=== PATIENT | male | born 1960 | race Caucasian/White ===

== ENCOUNTER 2017-01-24 02:14 | Emergency (ER) | payer OTHER ==
[2017-01-24] MEDS ORDERED: CLINDAMYCIN HCL 150 MG CAPSULE PO ONE ×2 (02:34→02:54)
[2017-01-24] MEDS ORDERED: HYDROcodone /APAP 5/325 1 EACH TABLET PO ONE ×2 (02:36→02:53)
--- NOTE | 2017-01-24 02:39 | ED Physician Documentation ---
General Adult - HISTORIAN Historian: patient - HPI Stated Complaint: dental pain Chief Complaint: General Adult Onset: hours Timing: still present Severity: moderate Further Comments: yes (Pt is a 56 yo male with dental pain x 2 days. No fever.) - ROS CONST: no problems EYES/ENT: none CVS/RESP: none GI/: none MS/SKIN/LYMPH: none - PAST HX Past History: hypertension Allergies/Adverse Reactions: Allergies Allergy/AdvReac Type Severity Reaction Status Date / Time Penicillins Allergy Severe Anaphylaxis Verified 01/24/17 02:32 Home Medications: Ambulatory Orders Medication Instructions Recorded NK [NK] 01/24/17 - SOCIAL HX Smoking History: cigarettes - FAMILY HX Family History: No - VITAL SIGNS Vital Signs: Vital Signs Temp Pulse Resp BP Pulse Ox 97.8 F 73 16 193/102 96 01/24/17 02:14 01/24/17 02:14 01/24/17 02:14 01/24/17 02:14 01/24/17 02:14 - REVIEWED ASSESSMENTS Nursing Assessment Reviewed: Yes Vitals Reviewed: Yes Progress - Progress Progress: Rx Clindamycin 300 mg po q 8 h x 10 days, 1st dose in ER Rx [place] (5/325) 1-2 po q 4-6 h prn # 15, 2 tabs in ER Rx Metoprolol 50 mg ER 1 po qd, 1st dose in ER. f/u dentist General Adult Physical Exam - PHYSICAL EXAM GENERAL APPEARANCE: moderate distress EENT: pharynx normal, other (poor dentition; tenderness, fx tooth R lower jaw) NECK: normal inspection, supple RESPIRATORY: no resp distress, chest non-tender, breath sounds normal CVS: reg rate & rhythm, heart sounds normal BACK: normal inspection SKIN: warm/dry, normal color EXTREMITIES: normal range of motion NEURO: oriented X3 Discharge Clincal Impression: dental pain HTN (hypertension) Qualifiers: Hypertension type: unspecified Qualified Code(s): I10 - Essential (primary) hypertension Referrals: Ronnie Hodges MD [Primary Care Provider] - 2 Days Home Medications: Ambulatory Orders NK [NK] 01/24/17 Condition: Stable Disposition: 01 HOME, SELF-CARE Decision to Admit: NO Decision Time: 03:01
[2017-01-24] MEDS ORDERED: METOPROLOL SUCCINATE 50 MG TAB.ER.24H PO ONE (02:45)
[2017-01-24 03:12] VITALS: BP 188/102
== END 2017-01-24 03:05 | disposition home or self-care (01) ==
LOC: ED 02:14
DX: K08.89 Other specified disorders of teeth and supporting structures (principal); I10 Essential (primary) hypertension
CPT/HCPCS: A9270 ×2; 99283; 99284